=== PATIENT | female | born 1955 | race African-American/Black ===

== ENCOUNTER 2018-07-23 20:41 | Emergency (ER) | payer SELFPAY ==
[2018-07-23 20:46] VITALS: BP 193/88; PULSE 112; TEMP 99.3; BMI 37.8
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
[2018-07-24 00:39] LABS: BASO % 0.7 % (0-2.0); EOS % 0.4 % (0-4.5); HEMOGLOBIN 13.9 GM/dL (10.7-15.3); MCH 28.9 pg (25.7-33.7); MEAN CELL VOLUME 87.5 fl (80-96); MEAN PLT VOLUME 9.6 fl (7.5-11.1); MONO % 5.7 % (3.8-10.2); NEUT % 66.2 % (42.8-82.8); PLATELET COUNT 223 K/MM3 (134-434); RDW 14.7 % (11.6-15.6); WHITE BLOOD COUNT 10.9 K/mm3 (4.0-10.0)
[2018-07-24] MEDS ORDERED: LISINOPRIL 10 MG TABLET (FP) PO ONE (00:52)
[2018-07-24] MEDS ORDERED: HYDROCHLOROTHIAZIDE 25 MG TABLET (FP) PO ONE (00:53)
--- NOTE | 2018-07-24 00:54 | PDOC ---
History of Present Illness - General Chief Complaint: Blood Pressure Problem Stated Complaint: Blood Pressure Problem Time Seen by Provider: 07/23/18 23:55 - History of Present Illness Initial Comments: 63 yo F w a hx of HTN was sent here from urgent care for elevated blood pressure. She is asymptomatic other than one episode of dizziness on Monday. Here she has no headache, chest pain, SOB, difficulty breathing, blurry vision, back pain, abdominal pain, or any other complaints. Denies any recent infections. She states that she used to take blood pressure meds years ago but she stopped bc her prescription ran out. She is here in the visiting from [facility]. She returns in 1 week. Denies any weakness, numbness, tingling or headache. PCP: None Allergies: NKA, NKDA Social Hx: Denies smoking, alcohol, or illicit drugs. Past History - Past Medical History Allergies/Adverse Reactions: Allergies Allergy/AdvReac Type Severity Reaction Status Date / Time No Known Allergies Allergy Verified 07/23/18 20:46 Home Medications: Ambulatory Orders Hydrochlorothiazide [Hctz -] 12.5 mg PO ONCE #30 cap 07/24/18 Lisinopril 10 mg PO ONCE #30 tablet 07/24/18 COPD: No HTN: Yes - Suicide/Smoking/Psychosocial Hx Smoking History: Never smoked Review of Systems - Review of Systems Comments:: CONSTITUTIONAL: Absent: fever, no chills, no fatigue EYES: Absent: visual changes ENT: Absent: ear pain, no sore throat CARDIOVASCULAR: Absent: chest pain, no palpitations RESPIRATORY: Absent: cough, no SOB GI: Absent: abdominal pain, no nausea, no vomiting, no constipation, no diarrhea GENITOURINARY: Absent: dysuria, no frequency, no hematuria MUSKULOSKELETAL: Absent: back pain, no arthralgia, no myalgia SKIN: Absent: rash NEURO: Absent: headache *Physical Exam - Vital Signs Last Vital Signs Temp Pulse Resp BP Pulse Ox 99.3 F 112 H 18 193/88 H 100 07/23/18 20:44 07/23/18 20:44 07/23/18 20:44 07/23/18 20:44 07/23/18 20:44 - Physical Exam Comments: GENERAL: Well-appearing, well-nourished. No apparent distress. HEENT: Normocephalic, atraumatic. PERRL, EOM intact. CARDIOVASCULAR: Normal S1, S2. Regular rate and rhythm. PULMONARY: Clear to auscultation bilaterally. ABDOMEN: Soft, non-distended, non-tender. EXTREMITIES: Normal ROM in all four extremities. No gross deformities. SKIN: Warm, dry. No rash NEUROLOGICAL: No focal neurological deficits. ED Treatment Course - LABORATORY CBC & Chemistry Diagram: 07/24/18 00:32 07/24/18 00:32 - ADDITIONAL ORDERS Additional order review: 07/24/18 00:32 RBC 4.80 MCV 87.5 MCHC 33.0 RDW 14.7 MPV 9.6 Neutrophils % 66.2 Lymphocytes % 27.0 Monocytes % 5.7 Eosinophils % 0.4 Basophils % 0.7 Medical Decision Making - Medical Decision Making 63 yo F w a hx of HTN here with elevated BP. She does not take any BP meds. BP at bedside: 175/88 HR at bedside: 98 This appears to be asymptomatic hypertensive urgency. DD includes but not limited to: Stroke, hypertensive urgency, emergency, dissection, asymtpomatic HTN Plan: BP meds, 30 day prescription for BP meds, PCP FU. *DC/Admit/Observation/Transfer Diagnosis at time of Disposition: Hypertension - Discharge Dispostion Disposition: HOME Condition at time of disposition: Stable Decision to Admit order: No - Prescriptions Prescriptions: Hydrochlorothiazide [Hctz -] 12.5 mg PO ONCE #30 cap Lisinopril 10 mg PO ONCE #30 tablet - Referrals Referrals: Adan Day MD [Staff Physician] - - Patient Instructions Printed Discharge Instructions: DI for High Blood Pressure, How to Monitor Your Blood Pressure at Home Additional Instructions: You came into the ER with high blood pressure. We gave you some medications for it and sent [facility] prescriptions [facility]. Please make sure to go pick them up. It is very important that you schedule an appointment with a primary care doctor. We are attaching the number for you to call. Please make sure to schedule an appointment in the next 3 to 5 days. Come back to the ER if you experience dizziness, nausea, vomiting, a bad headache, weakness or numbness. Thank you for coming to the [facility] ER. We hope you feel better soon! Print Language: FRENCH - Post Discharge Activity
[2018-07-24 01:02] LABS: ALBUMIN 3.8 g/dl (3.4-5.0); ALK PHOS 80 U/L (45-117); ANION GAP 10 MMOL/L (8-16); BILIRUBIN,TOTAL 0.4 mg/dL (0.2-1); BLOOD UREA NITROGEN 9 mg/dL (7-18); CALCIUM 9.4 mg/dL (8.5-10.1); CHLORIDE 104 mmol/L (98-107); CO2 25 mmol/L (21-32); CREATININE 0.9 mg/dL (0.55-1.3); GLUCOSE,RANDOM 129 mg/dL (74-106); POTASSIUM 4.1 mmol/L (3.5-5.1); SGOT/AST 17 U/L (15-37); SGPT/ALT 24 U/L (13-61); SODIUM 139 mmol/L (136-145); TOT PROT 8.6 g/dl (6.4-8.2)
[2018-07-24] MEDS ORDERED: HYDROCHLOROTHIAZIDE 25 MG TABLET (FP) ONE (01:37)
[2018-07-24] MEDS ORDERED: LISINOPRIL 5 MG TABLET (FP) ONE (01:37)
--- NOTE | 2018-07-24 12:34 | EKG ---
Test Reason : Blood Pressure : / mmHG Vent. Rate : 105 BPM Atrial Rate : 105 BPM P-R Int : 126 ms QRS Dur : 082 ms QT Int : 330 ms P-R-T Axes : 068 -13 026 degrees QTc Int : 436 ms SINUS TACHYCARDIA VOLTAGE CRITERIA FOR LEFT VENTRICULAR HYPERTROPHY ABNORMAL ECG Confirmed by MD MARJ, EUGENE ([id number]) on 07/24/2018 12:34:18 PM Referred By: Confirmed By:EUGENE MCMAHAN MD
== END 2018-07-24 02:20 | disposition home or self-care (01) ==
LOC: JER 20:41
DX: I10 Essential (primary) hypertension (principal)
CPT/HCPCS: 36415; 80053; 85025; 93005; 93010; 99281-25; 99283-25